=== PATIENT | male | born 1945 | race Caucasian/White ===

== ENCOUNTER 2023-04-24 12:07 | Day surgery (SDC) | payer OTHER, SELFPAY ==
[2023-04-24] VITALS (7 sets, daily range): BP systolic 110–148; BP diastolic 60–87; PULSE 60–78; RESP 10–18; TEMP 36.5–36.7; O2SAT 94–99
--- NOTE | 2023-04-24 | PATH_ITS ---
[facility] Accession Number: [id number] No. of containers..03 Tissue . 01 Material submitted: . PART A: gastrointestinal site - STOMACH PART B: duodenum - DUODENUM PART C: colon - RANDOM COLON . 01 Diagnosis: A. Stomach, Biopsy: Antral mucosa with no significant diagnostic abnormality. Negative for Helicobacter by immunohistochemistry. Negative for intestinal metaplasia. Negative for dysplasia and malignancy. . B. Duodenum, Biopsy: Duodenal mucosa with no diagnostic abnormality. Negative for active inflammation, features of sprue, dysplasia, or malignancy. . C. Random Colon, Biopsy: Colonic mucosa with no diagnostic abnormality. Negative for active, chronic, and microscopic colitis. Negative for dysplasia and malignancy. . [facility] 04/29/2023 1721 Local . 01 Electronically signed: . Yesenia Martinez MD, Pathologist NPI- [id number] . 01 Gross description: . Part A: STOMACH: Received in formalin are 2 fragment(s) of matthew, soft tissue measuring 0.2 x 0.2 x 0.2 cm to 0.3 x 0.3 x 0.2 cm submitted entirely in 1 cassette(s) Part B: DUODENUM: Received in formalin are 2 fragment(s) of matthew, soft tissue measuring 0.1 x 0.1 x 0.1 cm to 0.3 x 0.3 x 0.2 cm submitted entirely in 1 cassette(s) Part C: RANDOM COLON: Received in formalin are multiple fragment(s) of matthew, soft tissue measuring 0.1 x 0.1 x 0.1 cm to 0.3 x 0.3 x 0.2 cm submitted entirely in 1 cassette(s) /[facility] 04/25/2023 1925 Local . 01 Microscopic: . A. An immunohistochemical stain was performed to evaluate for Helicobacter organisms and is negative. The control stain showed appropriate reactivity. . * This test was developed and its performance characteristics determined by [facility]. It has not been cleared or approved by the [place]. Food and Drug Administration. The FDA has determined that such clearance or approval is not necessary. This test is used for clinical purposes. It should not be regarded as investigational or for research. . 01 Pathologist provided ICD-10: R10.9 . 01 CPT . 680269, 814641, 240220, [id number] Specimen Comment: A courtesy copy of this report has been sent to [phone] Performed at: 01 [facility] [address] [place] [address], [place], [place] [id number] MD Anjel Chandra MD Phone: [phone]
[2023-04-24] MEDS: LACTATED RINGERS 1,000 ML 42 ML IV (12:53)
--- NOTE | 2023-04-24 12:53 | PM.HP.1 ---
History of Present Illness History of Present Illness Date Patient Seen: 04/24/23 Chief complaint: SDC Narrative: History of GI bleed and gastric ulcers need to check for complete healing. In addition, history of colon polyps last colonoscopy 5 years ago. Meds Home Medications and Allergies Home Medications Medication Instructions Recorded Confirmed Type amlodipine 5 mg tablet 5 mg PO DAILY 04/24/23 04/24/23 History omeprazole 20 mg capsule,delayed 20 mg PO BID 04/24/23 04/24/23 History release sumatriptan succinate 100 mg tablet 100 mg PO DAILY PRN headaches 04/24/23 04/24/23 History Allergies Allergy/AdvReac Type Severity Reaction Status Date / Time oxycodone [From Percodan] AdvReac Unknown I get Verified 04/24/23 12:40 nasty Exam Vital Signs (past 8 hours): - 04/24/23 12:50 Temperature 97.7 F Pulse Rate 78 Respiratory Rate 18 Blood Pressure 148/87 H Pulse Oximetry 97 Oxygen Delivery Method Room Air Oxygen Delivery Method Room Air Narrative Exam Narrative: Oropharynx free of lesions Chest clear to auscultation percussion Cardiac exam reveals no S3 or murmur Assessment & Plan Assessment & Plan narrative: EGD and colonoscopy to be performed. Risks benefits alternatives have been explained.
--- NOTE | 2023-04-24 12:56 | PM.OP.EC ---
Operative Date/Time/Diagnoses Date of procedure: 04/24/23 Pre-op diagnosis: See indication and findings Procedure & Clinicians Study performed: EGD and colonoscopy Indications: History of GI bleed and more distant history of gastric ulcer rule out non healed ulceration. Also history of colon polyps need for follow-up 5 year colonoscopy Surgeon: Ramirez Hughes Procedure Notes Procedure in detail: After informed consent was obtained the patient was placed in left you go decubitus position. The upper scope was placed into the oropharynx with the patient's help esophagus. The esophagus stomach and duodenum were carefully examined. On withdrawal retroflexed view the GE junction was performed. The scope was removed. The colonoscope was then substituted the patient turn. Preparation was only fair with a good deal of opaque liquid stool throughout. Approximately 50-70% of mucosal surface area was seen. This was introduced in the rectum and slowly advanced cecum. On slow withdrawal mucosa was carefully examined. The scope was removed. The patient tolerated procedure well. Blood loss none Complications none Sedation mac Findings EGD 1. Mid esophageal punctate white lesions consistent with Jessica 2. Otherwise negative esophagus both proximally and distally 3. Scattered gastric erythema particularly in the antrum biopsies taken to rule out Helicobacter 4. Normal duodenal bulb and sweep biopsies taken to celiac Colonoscopy 1. Normal colonoscopy to cecum from what I was able to evaluate. Random biopsies taken to rule out microscopic colitis. I suggest that Mr. Dhillon follow up with Trav Perez in our office. S can go over biopsies at that time. In the meantime and have him continue his omeprazole
== END 2023-04-24 14:33 | disposition home or self-care (01) ==
PROVIDERS: PCP Registered Nurse; Referring Provider Internal Medicine Gastroenterology; Visit Provider Internal Medicine Gastroenterology
PROC: 0DJD8ZZ Inspection of Lower Intestinal Tract, Via Natural or Artificial Opening Endoscopic (ICD-10-PCS; CPT 45378; principal; 2023-04-24 13:30)
PROC: 0DJ08ZZ Inspection of Upper Intestinal Tract, Via Natural or Artificial Opening Endoscopic (ICD-10-PCS; CPT 43235; 2023-04-24 13:30)
DX: Z12.11 Encounter for screening for malignant neoplasm of colon (principal); Z86.010 Personal history of colon polyps; Z87.19 Personal history of other diseases of the digestive system; Z87.11 Personal history of peptic ulcer disease
CPT/HCPCS: 45380; 43239; J2704